=== PATIENT | female | born 1950 | race Caucasian/White ===

== ENCOUNTER → 2021-08-13 | Outpatient (CLI) | payer MEDICARE ==
--- NOTE | 2021-08-13 10:06 | RAD ---
EXAM: Sonographic guided right breast biopsy; right breast biopsy clip placement; right breast postbi opsy mammogram. HISTORY: 71-year-old female presents for sonographic guided biopsy of a lesion within the 2:00 positi on of the right breast demonstrated on a mammogram and sonogram performed at an outside facility. TECHNIQUE: The risks of the procedure discussed with the patient and written and verbal consent was o btained. A timeout was performed. Sonographic imaging of the right breast was performed and the lesio n of concern at the 2:00 position 6 cm from the nipple was identified. The skin overlying this locati on was sterilely prepped, draped and infiltrated with 1 percent lidocaine. A small skin incision was made. Multiple core samples were obtained through the lesion of concern. A biopsy clip was then advan morgan to the biopsy bed. Manual compression was maintained until hemostasis was achieved. A sterile ban dage was placed. The specimens were submitted to the department of pathology for analysis. A postbiop sy mammogram was obtained. This demonstrates the biopsy clip in expected position. The patient tolera alejandro the procedure without difficulty and was discharged in stable condition. IMPRESSION: Successful sonographic guided biopsy of a small lesion within the 2:00 position of the ri ght breast 6 cm from the nipple and biopsy clip placement. An addendum to this report will be submitt ed when pathology results are available. Electronically signed by: Luna Joshua MD (08/13/2021 10:03 AM) [id number]
--- NOTE | 2021-08-14 17:18 | PATHOLOGY ---
[facility] Accession Number: [id number] . 01 Material submitted: . breast - RIGHT BREAST MASS 2:00 6CMFN. Modifiers: right . 01 Clinical history: . RIGHT BREAST BIOPSY . 02 Diagnosis: Breast tissue, right breast mass 2:00, 6 cm from nipple, needle biopsy: - INVASIVE DUCTAL CARCINOMA, GRADE 3. SEE COMMENT. . (JPM:mml; 08/14/2021) [facility] 08/14/2021 1555 Local . 02 Comment: Sections of the right breast mass at 2:00 needle biopsy reveal an invasive mammary carcinoma. Tumor cells are present in solid nests and show little tubule formation. There are tumor cells present which possess intracytoplasmic lumina imparting a signet-ring cell appearance. Tumor cells show moderate nuclear pleomorphism. The tumor shows increased mitotic activity with foci showing up to 3-4 mitotic figures/HPF. There are no tumor associated calcifications. There is no lymphovascular tumor invasion. Invasive carcinoma measures up to approximately 5 mm in greatest dimension on the glass slide. The morphologic findings are supportive of the diagnosis of an invasive ductal carcinoma, histologic Grade 3. . The case is also examined by Dr. Saúl Mackay, who concurs with the diagnosis. The results are reported to Dr. Marmolejo on 08/14/21 at 3:10 PM. . Breast prognostic studies will be obtained on A3, the results of which will be reported separately. . (JPM:mml; 08/14/2021) . 02 Electronically signed: . Luis Negrete MD, Pathologist NPI- [id number] . 01 Gross description: . Received in formalin labeled "Idania Zaragoza, right breast 2:00 6 cm FN" are multiple yellow-mcfarland cylindrical soft tissue cores measuring in aggregate 1.7 x 1.0 x 0.2 cm. The specimen is submitted in cassettes A1-A3. The specimen is removed from the patient at 0935 and placed in formalin at 0936 on 08/13/2021. The specimen is removed from formalin at 1840 on 08/13/2021. [place] [place]/13/2021[place] [facility] 08/13/2021 1648 [facility] . 02 Pathologist provided ICD-10: C50.911 . 02 CPT . 721940 Specimen Comment: A courtesy copy of this report has been sent to [phone] Specimen Comment: Report sent to Performed at: 01 [facility] [address] [facility] [address], [place] [id number] MD Emiliano Mott MD Phone: [phone] Performed at: 02 [facility] [address] [place], [place] [id number] MD Luis Negrete MD Phone: [phone]
== END | disposition home or self-care (01) ==
LOC: US 08:32
PROVIDERS: ATTEND Surgery
DX: N63.12 Unspecified lump in the right breast, upper inner quadrant (principal); C50.911 Malignant neoplasm of unspecified site of right female breast; Z79.899 Other long term (current) drug therapy
CPT/HCPCS: 19083; 77065; 88305; 88361; A4648; C1819

== ENCOUNTER → 2021-09-07 | Outpatient (CLI) | payer MEDICARE ==
[~2021-09-07] MED LIST: CHOL500050 PO; HYDR-2761 PO; HYDR12.575 PO; LOSA100T14 PO; METF750T39 PO; MULT-496 PO; SIMV40TA18 PO
== END ==
LOC: LAB 10:15
PROVIDERS: ATTEND Surgery
DX: Z01.812 Encounter for preprocedural laboratory examination (principal); C50.911 Malignant neoplasm of unspecified site of right female breast; Z20.822 Contact with and (suspected) exposure to COVID-19
CPT/HCPCS: U0003; U0005

== ENCOUNTER 2021-09-10 09:09 | Day surgery (SDC) | payer MEDICARE ==
[~2021-09-10] VITALS: Ht 160 cm; Wt 85.0 kg
[~2021-09-10 09:09] MED LIST changes: -HYDR-2761 PO; +HYDROmorphone 2 MG/ML INJ. IVP PRN; +IV RINGERS,LACTATED 1000ML 1,000 ML IV SCH; +MORPHINE SULFATE 2 MG/ML INJ. IVP PRN; +PROCHLORPERAZINE 10 MG/2 ML VIAL. IVP PRN; +fentaNYL PF VIAL 100 MCG/2 ML VIAL IVP PRN
[2021-09-10 09:36] VITALS: BP 169/81
[2021-09-10] MEDS ORDERED: INSULIN LISPRO 100 UNIT/ML 3ML VIAL for OP,RR ONLY. SQ PRN (09:45)
[2021-09-10] MEDS ORDERED: INSULIN LISPRO 100 UNIT/ML 3ML VIAL for OP,RR ONLY. SQ ONE (09:45)
[2021-09-10] MEDS ORDERED: LIDOCAINE 1% PF 5 ML VIAL. ONE (11:14)
[2021-09-10] MEDS ORDERED: PROPOFOL 10 MG/ML (20ML) VIAL. IV ONE ×2 (11:14→14:40)
[2021-09-10] MEDS ORDERED: fentaNYL PF VIAL 100 MCG/2 ML VIAL ONE ×3 (11:15→15:02)
[2021-09-10] MEDS ORDERED: ONDANSETRON PF 4 MG/2 ML VIAL. ONE (11:20)
[2021-09-10] MEDS ORDERED: DEXAMETHASONE SOD PHOS 4 MG/ML VIAL ONE (11:20)
--- NOTE | 2021-09-10 11:42 | RAD ---
US NDL LOC WIRE BREAST, MG DIAGNOSTICUNILAT MAMMO History:Reason: Right Breast Needle Loc / Spl. Instructions: / History: Comparison: None Procedure: Relative benefits, risks and alternatives to the procedure were discussed and written inf ormed consent was obtained. With sterile technique, local anesthesia and ultrasound guidance, percutaneous needle was advanced in to the mass and 7 1/2 inch wire was passed through the needle. Post mammogram images were obtained. The tip of the wire is immediately adjacent to the mass. The mas s extends approximately 1 cm beyond the tip of the J wire. The biopsy marker is approximately 0.7 cm from the tip of the wire. Impression: 1. Ultrasound-guided right breast mass wire localization. The tip of the J-wire is at the edge of th e mass. Electronically signed by: Tesfaye Palmer DO (09/10/2021 11:39 AM) [id number]
[2021-09-10] MEDS ORDERED: SCOPOLAMINE 1.5MG PATCH. TD ONE ×2 (11:51→12:00)
[2021-09-10] MEDS ORDERED: GABAPENTIN 300 MG CAPSULE. PO ONE ×2 (11:52→12:00)
[2021-09-10] MEDS ORDERED: ACETAMINOPHEN 500 MG TABLET PO ONE ×2 (11:52→12:00)
--- NOTE | 2021-09-10 12:51 | RAD ---
NM SENTINEL NODE INJECTION History: Right breast cancer Technique: Procedure was explained to the patient. External skin site was cleansed with ChloraPrep so lution. A total of 1 uCi of technetium 99 M was injected in 4 quadrants about the right nipple. There was no significant bleeding or complication. No post images were obtained. Impression: 1. Successful right breast injection for lymphoscintigraphy. Electronically signed by: Tesfaye Palmer DO (09/10/2021 12:48 PM) [id number]
[2021-09-10] MEDS ORDERED: ISOSULFAN BLUE 1% 50 MG/5 ML VIAL. SQ ONE (13:11)
[2021-09-10] MEDS ORDERED: BUPIVACAINE-EPI 0.5% 30 ML VIAL KIT. ONE (13:11)
[2021-09-10] MEDS ORDERED: ePHEDrine PF IN SALINE 50 MG/10 ML SYRINGE. IV ONE (14:09)
[2021-09-10] MEDS ORDERED: PHENYLEPHRINE 10 MG/ML VIAL. ONE (14:54)
--- NOTE | 2021-09-10 15:37 | PDOC4 ---
Operative Note Operative Note Operative Note: Preoperative Diagnosis: Right breast cancer Postoperative Diagnosis: Same Procedure: Right lumpectomy with wire localization, right axillary sentinel lymph node biopsy Surgeon: Jaleel Obstetrics Gynecology Md: Haseeb oRa MS 3 Anesthesia: General EBL: 20 mL Specimen: [place] lymph node #1 to pathology, right lumpectomy short stitch superficial, long stitch lateral to pathology Drains: None Complications: None Indication: The patient is a 71-year-old female who was recently diagnosed with right breast cancer. She is interested in breast conservation. The plan is for a right lumpectomy with needle localization and a sentinel lymph node biopsy. The risks of surgery were discussed with the patient which include bleeding, infection, scar tissue, pain, wound healing problems, anesthetic risk, potential need for additional surgery procedure. She understands and would like to proceed. Description: The patient was initially taken to radiology where she underwent wire localization of the breast mass as well as injection of technetium sulfur colloid. She was then brought to the operating room and placed supine in the operating table. General anesthesia was performed. The right breast and axilla were prepped with ChloraPrep and draped in a standard surgical manner. 5 mL of Lymphazurin were injected deep to the nipple areolar complex. Several minutes were allowed to elapse. An incision was made in the axilla with a scalpel. Cautery dissection was carried down into the axillary tissues. There was an area of marked increased nuclear uptake corresponding to a sentinel lymph node. This was mobilized from the surrounding tissues and sent fresh to pathology. There were no other remaining areas of increased nuclear uptake, no palpable adenopathy, or blue stained lymph nodes. Frozen section of the sentinel lymph node showed no evidence of metastasis. We then proceeded with the lumpectomy. The wire was entering in the superior aspect with the distal portion directed toward the 2 o'clock position. An incision was made overlying the expected area of the tumor. Cautery dissection was carried down into the breast parenchyma. With cautery the specimen of the lumpectomy was mobilized from the surrounding breast tissue. The dissection was carried circumferentially all the way down to the pectoralis muscle. In a medial to lateral fashion the lumpectomy specimen was taken off the chest wall. The superficial margin was marked with a short silk stitch and the lateral margin tagged with a long silk stitch. The specimen was sent to radiology where radiographs confirmed the presence of the tumor clip and distal portion of the wire. The specimen was then sent to pathology. Hemostasis was achieved with cautery. The subcutaneous tissue of both incisions was approximated with 3-0 Vicryl. Skin was closed with 4-0 Monocryl. Sterile dressings were then applied. The patient tolerated the procedure well and was sent to the recovery room in stable condition. At the end of the case all counts were correct. RAKESH KHALIL MD Sep 10, 2021 15:37
[2021-09-10] MEDS ORDERED: HYDR-2761 PO (15:39)
--- NOTE | 2021-09-10 15:40 | DISCH ---
DISCHARGE INSTRUCTIONS Condition on Discharge Condition on Discharge: Stable Activity After Discharge Activity Instructions for Disc: Resume previous activity Diet after Discharge Diet after Discharge: Regular Wound Incision Care Wound/Incision Care: Other, see below (keep dressings clean and dry) Follow-Up Follow up with: Dr Khalil in 1 week in office, call for appt [phone] RAKESH KHALIL MD Sep 10, 2021 15:40
[2021-09-10] MEDS ORDERED: HYDROcodone/APAP 5/325MG 1 TAB TABLET PO ONE (16:30)
[2021-09-10 16:33] VITALS: BP 167/74
--- NOTE | 2021-09-11 09:53 | RAD ---
Tissue specimen mammogram History: Reason: RIGHT BREAST SPECIMEN / Spl. Instructions: / History: Technique: Radiograph was taken of the tissue specimen postlumpectomy. Comparison: None. Findings: Tissue specimen identified with previously seen right breast mass, J-wire and biopsy marker near the center of the specimen. The biopsy marker is identified on the grid at H7. Impression: 1. Tissue specimen including the right breast mass, wire and biopsy marker. Electronically signed by: Tesfaye Palmer DO (09/11/2021 9:51 AM) [id number]
--- NOTE | 2021-09-18 14:09 | PATHOLOGY ---
[facility] Accession Number: [id number] . 01 Material submitted: . PART A: breast - SENTINEL LYMPH NODE #1-FS. Modifiers: right, LYMPH NODE PART B: breast - RIGHT LUMPECTOMY SHORT STITCH SUPERFICIAL, LONG STITCH LATERAL. Modifiers: right . 01 Clinical history: . BREAST CANCER RIGHT SIDE RIGHT LUMPECTOMY SENTINEL LN BX A: OBTAINED: 1433, FORMALIN: FRESH B: OBTAINED: 1450 ON 09/10/2021, FORMALI: 1520 DR NEGRETE MARKED CLIP AT H7 WITH BLUE INK RT SENTINEL NODE #1: NEGATIVE FOR TUMOR . 02 Frozen section diagnosis: . INTRAOPERATIVE CONSULTATION WITH FROZEN SECTION: FSA1. [place] lymph node #1: - Negative for tumor. . The results are reported to Dr. Marmolejo in the operating room. (JPM:joey/janette; 09/13/2021) . FROZEN SECTION GROSS DESCRIPTION: A. The specimen is received fresh for intraoperative consultation and is designated "sentinel lymph node #1". This consists of a segment of yellow red fatty tissue measuring up to 3.5 cm in length and 1.9 cm in width. Sectioning reveals an eccentrically located yellow and pink lymph node measuring up to 2 cm in greatest dimension. On sectioning, the lymph node has a fatty appearance and shows no gross evidence of tumor replacement. This is submitted for frozen section as FSA1. The tissue remaining from frozen section is submitted for permanent sections as A1. (JPM:joey; 09/13/2021) . Frozen section performed at [facility], [address] [place] [address], [place] [address] [facility] . 02 Diagnosis: A. Lymph node, sentinel lymph node #1 excisional biopsy: - Negative for tumor (0/1). . B. Breast tissue, wire localized oriented right breast lumpectomy: - Residual invasive poorly differentiated mammary carcinoma with lobular features, measuring up to 1.4 cm in greatest dimension. 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 - Invasive carcinoma is approximately 3 mm to the closest medial margin and 4 mm to the closest inferior margin. - Ductal involvement by lobular neoplasia is approximately 3 mm from the closest medial and inferior margins of resection. - Previous biopsy site changes. - Fibrocystic and fibroadenomatous changes, focal. (JPM:janette/joey/doris; 09/18/2021) . . 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) Histologic Grade (Seffner Histologic Score) Glandular (Acinar) / Tubular Differentiation ___ Score 3 (less than 10% of tumor area forming glandular / tubular structures) Nuclear Pleomorphism ___ Score 2 (Cells larger than normal with open vesicular nuclei, visible nucleoli, and moderate variability in both size and shape) Mitotic Rate ___ Score 3 Overall Grade ___ Grade 3 (scores of 8 or 9) Tumor Size ___ Greatest dimension of largest invasive focus greater than 1 mm: 14 mm +Tumor Focality ___ Single focus of invasive carcinoma Ductal Carcinoma In Situ (DCIS) ___ Not identified +Lobular Carcinoma In Situ (LCIS) ___ Present +Microcalcifications ___ Not identified MARGINS Margin Status for Invasive Carcinoma ___ Uninvolved by invasive carcinoma Distance from invasive carcinoma to closest Margin ___ Exact distance: 3 mm +Specify Closest Margin: ___ Medial margin +Distance from Other Margins ___ Anterior: 4 mm REGIONAL LYMPH NODES Regional Lymph Node Status ___ Uninvolved by tumor cells Total Number of Lymph Nodes Examined: 1 Number of [place] Nodes Examined: 1 Lymphovascular Invasion: ___ Not identified . PATHOLOGIC STAGE CLASSIFICATION (pTNM, AJCC 8th Edition) Primary Tumor (pT) ___ pT1c: Tumor greater than 10 mm but less than or equal to 20 mm in greatest dimension Regional Lymph Nodes (pN) ___ pN0: No regional lymph node metastasis identified Additional Pathologic Findings: ___ See diagnoses SPECIAL STUDIES +Breast Biomarker Testing Performed on Previous Biopsy ___ Testing performed on case #[id number] ([id number]) Estrogen Receptor (ER) ___ Positive (greater than 10% of cells demonstrate nuclear positivity) +Percentage of Cells with Nuclear Positivity: 90% ___ Progesterone Receptor (PgR) ___ Positive +Percentage of Cells with Nuclear Positivity: 70% ___ HER2 (by immunohistochemistry) ___ Negative (Score 1+) ___ Ki-67 Ki-67 Percentage of Positive Nuclei: 30% (JPM/doris; 09/18/2021) [facility] 09/18/2021 1327 Local . 02 Comment: The sentinel lymph node is examined at multiple levels. In addition, an immunoperoxidase for AE1/AE3 is also obtained and yields the following results: AE1/AE3 (A1): Negative for tumor. . . Thus, there is a single sentinel lymph node which is negative for tumor. . Sections of the right breast lumpectomy reveal an invasive poorly differentiated mammary carcinoma. The tumor cells have a solid nested and cord like arrangement and in better preserved areas has an infiltrating lobular histology. There are also foci adjacent to the tumor having features compatible with ductal involvement by lobular neoplasia. A panel of immunoperoxidase stains is obtained and yields the following results: . AE1/AE3 (B2): Tumor cells positive E-Cadherin (B2): Tumor cells negative AE1/AE3 (B3): Tumor cells positive E-Cadherin (B3): Tumor cells negative . 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 . Slides of the previous biopsy ([id number]; [id number]) are reviewed. A limited panel of immunoperoxidase stains is obtained on block A3 from the biopsy and yields the following results: . AE1/AE3: Tumor cells positive E-Cadherin: Tumor cells negative . Thus the original tumor also appears to be an invasive poorly differentiated mammary carcinoma with lobular features. (JPM:joey; 09/18/2021). . Immunoperoxidase stains for AE1/AE3 on A1, B2 and B2 and E-Cadherin on B2 and B3. . 02 Electronically signed: . Luis Negrete MD, Pathologist NPI- [id number] . 01 Gross description: . A. SEE FROZEN SECTION FOR GROSS DESCRIPTION . B. Labeled: "Idania Zaragoza , right lumpectomy short stitch superficial, long stich lateral" Specimen received: A previously oriented, right lumpectomy specimen with a localizing needle protruding from the inferior surface Oriented: Yes, short stitch superficial, long stitch lateral. Dimensions: 10.4 cm from anterior to posterior 9.0 cm from superior to inferior 2.3 cm from medial to lateral Weight: 108 g The specimen is inked as follows: superior-red inferior-green anterior-orange posterior-black lateral-yellow medial-blue Sectioned from: Anterior to posterior Number of slices: 14 Lesion: 1.0 x 0.8 x 0.4 cm Lesion location: Adjacent to localizing wire, in slice 5 Lesion to margins: 5.0 cm to superior 2.3 cm to inferior 2.1 cm to anterior 4.7 cm to posterior 1.4 cm to lateral 1.3 cm to medial Biopsy clip: Yes, slice 5 Uninvolved breast parenchyma: Comprised of 10% white fibrous tissue and 90% yellow lobulated adipose tissue . The specimen is submitted as follows: B1 in home sales representative slice 1, anterior margin B2-B7 slice 5, entirely submitted B2 entire lesion, to include closest medial margin B3 closest inferior margin B4 closest lateral margin B5-B6 remaining tissue from slice 5 B7 closest superior margin B8 in home sales representative slice 14, posterior margin B9 in home sales representative slice 4, slice adjacent to lesion B10 in home sales representative slice 6, slice adjacent to lesion . The specimen is removed from the patient at 1450 and placed in formalin at 1520 on 09/10/2021. The specimen is in formalin for 30 hours. (JGG; 09/11/2021) JGG/J 09/14/2021 1727 Local . 02 Pathologist provided ICD-10: C50.911 . 02 CPT . 867674, 524079, [id number], [id number], [id number] Specimen Comment: A courtesy copy of this report has been sent to [phone] Specimen Comment: [id number] Specimen Comment: Report sent to / DR GROVE Performed at: [address] [place] [address] [address], [place], [place] [id number] MD Emiliano Mott MD Phone: [phone] Performed at: [address] [id number] MD Luis Negrete MD Phone: [phone]
== END 2021-09-10 17:08 | disposition home or self-care (01) ==
LOC: SURG 09:09
PROVIDERS: ATTEND Surgery
DX: C50.911 Malignant neoplasm of unspecified site of right female breast (principal); R92.8 Other abnormal and inconclusive findings on diagnostic imaging of breast; I10 Essential (primary) hypertension; E78.00 Pure hypercholesterolemia, unspecified; M19.90 Unspecified osteoarthritis, unspecified site; E11.9 Type 2 diabetes mellitus without complications; Z79.899 Other long term (current) drug therapy; Z98.890 Other specified postprocedural states; Z79.84 Long term (current) use of oral hypoglycemic drugs
CPT/HCPCS: 19285; 19302; 38792; 76098; 77065; 82962; 88307; 88331; 88341; 88342; 96374; A4209; A4930; A6254; A6258; A9520; C1819; J0690; J1100; J1815; J2370; J2405; J2704; J3010; J3490; Q9968

== ENCOUNTER → 2021-10-03 | Outpatient (CLI) | payer MEDICARE ==
[2021-09-10 16:33] VITALS: BP 167/74
[~2021-10-03] MED LIST changes: +HYDR-2761 PO; -HYDROmorphone 2 MG/ML INJ. IVP PRN; -IV RINGERS,LACTATED 1000ML 1,000 ML IV SCH; -MORPHINE SULFATE 2 MG/ML INJ. IVP PRN; -PROCHLORPERAZINE 10 MG/2 ML VIAL. IVP PRN; -fentaNYL PF VIAL 100 MCG/2 ML VIAL IVP PRN
--- NOTE | 2021-10-03 11:18 | RAD ---
EXAM: Chest, 2 views. HISTORY: Breast cancer. COMPARISON: None. FINDINGS: 2 views of the chest are obtained. There is no infiltrate, pleural effusion or pneumothorax . The heart is normal in size. IMPRESSION: No acute pulmonary finding. Electronically signed by: Luna Joshua MD (10/03/2021 11:16 AM) [id number]
== END ==
LOC: RAD 10:14
PROVIDERS: ATTEND Radiology Radiation Oncology
DX: C50.911 Malignant neoplasm of unspecified site of right female breast (principal)
CPT/HCPCS: 71046

== ENCOUNTER → 2021-10-29 | Outpatient (CLI) | payer MEDICARE | LOC: CT 12:25 | PROVIDERS: ATTEND Radiology Radiation Oncology | DX: C50.211 Malignant neoplasm of upper-inner quadrant of right female breast (principal) | CPT/HCPCS: 76380 ==